=== PATIENT | female | born 1990 | race Caucasian/White ===

== ENCOUNTER 2020-05-08 13:04 | Emergency (ER) | payer OTHER ==
[~2020-05-08] VITALS: Ht 175.3 cm; Wt 181.4 kg
[~2020-05-08 13:04] MED LIST: HYDR1TAB94 PO; IBUP800; IBUP800 PO; INSUASPI; MEDR150I IM; OXYACE5T PO; Omeprazole20 M1; SERT25; SLOW RELEASE47.5 MG; Verotin-Gr Cap1 EACH PO
[2020-05-08 15:09] LABS: BASOPHILS ABSOLUTE AUTO 0.02 K/mm3 (0.00-0.23); BASOPHILS PERCENT AUTO 0 % (0-2); EOSINOPHILS ABSOLUTE AUTO 0.15 K/mm3 (0.00-0.68); EOSINOPHILS PERCENT AUTO 1 % (0-6); Hemoglobin 11.9 g/dL (11.5-16.0); IMMATURE GRAN ABSOLUTE AUTO 0.04 K/mm3 (0.00-0.10); IMMATURE GRAN PERCENT AUTO 0 % (0-1); LYMPHOCYTES ABSOLUTE AUTO 1.17 K/mm3 (0.84-5.20); LYMPHOCYTES PERCENT AUTO 11 % (21-46); MONOCYTES ABSOLUTE AUTO 0.42 K/mm3 (0.16-1.47); MONOCYTES PERCENT AUTO 4 % (4-13); Mean Corpuscular HGB 27.9 pg (26.0-34.0); Mean Corpuscular HGB Conc 30.5 g/dL (31.5-36.5); Mean Corpuscular Volume 92 fL (80-100); Mean Platelet Volume 9.3 fL (9.1-12.4); NEUTROPHILS ABSOLUTE AUTO 8.61 K/mm3 (1.96-9.15); NEUTROPHILS PERCENT AUTO 83 % (41-73); Platelet Count 282 K/mm3 (150-400); RDW Coefficient Variation 13.6 % (11.7-14.2); Red Blood Cell Count 4.26 M/mm3 (3.80-5.20); White Blood Cell Count 10.41 K/mm3 (4.00-11.30)
[2020-05-08 15:34] LABS: Alanine Aminotransfer (ALT/SGP 27 U/L (12-78); Albumin, Blood 3.2 g/dL (3.4-5.0); Albumin/Globulin Ratio 0.7 (0.8-1.8); Alk Phos 99 U/L (50-136); Anion Gap 6 mmol/L (6-16); Aspartate Aminotrans (AST/SGOT 19 U/L (12-37); Bilirubin, Total 0.3 mg/dL (0.1-1.0); Blood Urea Nitrogen 6 mg/dL (8-24); Bun/Creatinine Ratio 8.7 (12.0-20.0); CO2, Blood 29 mmol/L (21-32); Calcium, Blood 8.8 mg/dL (8.5-10.1); Chloride, Blood 102 mmol/L (98-108); Creatinine, Blood 0.69 mg/dL (0.40-1.00); Globulin, Blood 4.5 g/dL (2.2-4.0); Glomerular Filtration Rate >60 (60-); Glucose, Blood 97 mg/dL (70-99); Potassium, Blood 3.7 mmol/L (3.5-5.5); Sodium, Blood 137 mmol/L (136-145); Total Protein, Blood 7.7 g/dL (6.4-8.2)
[2020-05-08 16:03] LABS: Source, Urine Clean Catch
[2020-05-08 16:07] LABS: Bilirubin, Urine Neg (Neg); Blood, Urine Neg (Neg); Glucose Qualitative, Urine Neg (Neg); Ketones, Urine Neg (Neg); Leukocyte Esterase, Urine 2+ (Neg); Nitrite, Urine Neg (Neg); Protein, Urine Neg (Neg); Specific Gravity, Urine 1.005 (1.003-1.022); Urobilinogen, Urine NORM (Normal)
[2020-05-08 16:16] LABS: Appearance, Urine Clear (Clear); Color, Urine Yellow (P-Yellow)
[2020-05-08 16:18] LABS: Bacteria Few /hpf; Red Blood Cells, Urine Not Seen /hpf (0-2); Squamous Epithelial Cells Rare /hpf (Few)
[2020-05-08] MEDS ORDERED: PROZAC20 MG PO (17:19)
[2020-05-08] MEDS ORDERED: Amoxicillin500 MG PO (17:45)
[2020-05-08] MEDS ORDERED: Zithromax250 MG PO (17:45)
== END 2020-05-08 19:08 | disposition home or self-care (01) ==
LOC: ER 13:04
PROVIDERS: Emergency Medicine
DX: O99.511 Diseases of the respiratory system complicating pregnancy, first trimester (principal); J18.9 Pneumonia, unspecified organism; O99.711 Diseases of the skin and subcutaneous tissue complicating pregnancy, first trimester; L55.0 Sunburn of first degree; Z20.828 Contact with and (suspected) exposure to other viral communicable diseases; Z87.891 Personal history of nicotine dependence; Z3A.00 Weeks of gestation of pregnancy not specified
CPT/HCPCS: 36415; 71045; 80053; 81001; 83605; 84145; 84703; 85025; 87040; 87086; 96361; 96365; 96367; 99283-25; J0456; J0696; J7030; J7050; U0002

== ENCOUNTER → 2020-07-22 | Outpatient (CLI) | payer OTHER ==
[~2020-07-22] MED LIST changes: +Amoxicillin500 MG PO; +PROZAC20 MG PO; +Zithromax250 MG PO
== END | disposition home or self-care (01) ==
LOC: LAB SHORT 19:31 → LAB 19:31
DX: R05 Cough (principal); Z20.828 Contact with and (suspected) exposure to other viral communicable diseases
CPT/HCPCS: U0003

== ENCOUNTER 2021-09-13 18:27 | Emergency (ER) | payer SELFPAY ==
[~2021-09-13] VITALS: Ht 172.7 cm; Wt 189.2 kg
[2021-09-13] MEDS ORDERED: LISI20 PO (21:04)
[2021-09-13] MEDS ORDERED: CATAPRES0.1 MG PO (21:04)
[2021-09-13] MEDS ORDERED: VENLAFAXINE ER 150MG (21:05)
[2021-09-13 22:14] LABS: Influenza A, PCR NEGATIVE (NEGATIVE); Influenza B, PCR NEGATIVE (NEGATIVE); SARS-Cov-2 (COVID-19) PCR, MMC NEGATIVE (NEGATIVE)
[2021-09-13 22:15] LABS: Resp Syncytial Virus, PCR POSITIVE (NEGATIVE)
== END 2021-09-13 23:10 | disposition home or self-care (01) ==
LOC: ER 18:27
PROVIDERS: Physician Assistant
DX: J20.5 Acute bronchitis due to respiratory syncytial virus (principal); F17.200 Nicotine dependence, unspecified, uncomplicated; Z79.899 Other long term (current) drug therapy; Z20.822 Contact with and (suspected) exposure to COVID-19
CPT/HCPCS: 0241U; 71046; 99285-25

== ENCOUNTER 2022-01-30 22:56 | Inpatient (IN) | payer OTHER ==
[~2022-01-30] VITALS: Ht 172.7 cm; Wt 183.8 kg
[~2022-01-30 22:56] MED LIST changes: +CATAPRES0.1 MG PO; +LISI20 PO; +VENLAFAXINE ER 150MG
[2022-01-31 00:17] LABS: Influenza A, PCR NEGATIVE (NEGATIVE); Influenza B, PCR NEGATIVE (NEGATIVE); Resp Syncytial Virus, PCR NEGATIVE (NEGATIVE); SARS-Cov-2 (COVID-19) PCR, MMC NEGATIVE (NEGATIVE)
[2022-01-31] MEDS ORDERED: TREMFYA100 MG/1 M SQ (00:46)
[2022-01-31 00:47] LABS: BASOPHILS ABSOLUTE AUTO 0.03 K/mm3 (0.00-0.23); BASOPHILS PERCENT AUTO 0 % (0-2); EOSINOPHILS ABSOLUTE AUTO 0.32 K/mm3 (0.00-0.68); EOSINOPHILS PERCENT AUTO 2 % (0-6); Hematocrit 37.6 % (33.0-51.0); Hemoglobin 11.8 g/dL (11.5-16.0); IMMATURE GRAN PERCENT AUTO 1 % (0-1); LYMPHOCYTES ABSOLUTE AUTO 2.08 K/mm3 (0.84-5.20); LYMPHOCYTES PERCENT AUTO 12 % (21-46); MONOCYTES ABSOLUTE AUTO 0.79 K/mm3 (0.16-1.47); MONOCYTES PERCENT AUTO 5 % (4-13); Mean Corpuscular HGB 28.4 pg (26.0-34.0); Mean Corpuscular HGB Conc 31.4 g/dL (31.5-36.5); Mean Corpuscular Volume 91 fL (80-100); Mean Platelet Volume 9.5 fL (9.1-12.4); NEUTROPHILS ABSOLUTE AUTO 14.36 K/mm3 (1.96-9.15); NEUTROPHILS PERCENT AUTO 81 % (41-73); Platelet Count 338 K/mm3 (150-400); RDW Coefficient Variation 13.8 % (11.7-14.2); RDW Standard Deviation 45.5 fL (35.1-46.3); Red Blood Cell Count 4.15 M/mm3 (3.80-5.20); White Blood Cell Count 17.68 K/mm3 (4.00-11.30)
[2022-01-31 00:56] LABS: Bicarbonate Venous 30.3 mmol/L (24.0-30.0); PCO2 Venous 49.3 mmHg (38-42); pH Blood Venous 7.43 (7.34-7.37)
[2022-01-31 01:05] LABS: Alanine Aminotransfer (ALT/SGP 42 U/L (12-78); Albumin, Blood 3.1 g/dL (3.4-5.0); Albumin/Globulin Ratio 0.6 (0.8-1.8); Alk Phos 117 U/L (50-136); Anion Gap 6 mmol/L (6-16); Aspartate Aminotrans (AST/SGOT 28 U/L (12-37); Bilirubin, Total 0.4 mg/dL (0.1-1.0); Blood Urea Nitrogen 7 mg/dL (8-24); Bun/Creatinine Ratio 9.8 (12.0-20.0); CO2, Blood 30 mmol/L (21-32); Calcium, Blood 9.1 mg/dL (8.5-10.1); Chloride, Blood 102 mmol/L (98-108); Creatinine, Blood 0.71 mg/dL (0.40-1.00); Glomerular Filtration Rate >60 (60-); Glucose, Blood 132 mg/dL (70-99); Potassium, Blood 3.5 mmol/L (3.5-5.5); Sodium, Blood 138 mmol/L (136-145); Total Protein, Blood 8.1 g/dL (6.4-8.2)
[2022-01-31 03:13] LABS: Source, Urine Clean Catch
[2022-01-31 03:16] LABS: Appearance, Urine Clear (Clear); Bilirubin, Urine Neg (Neg); Blood, Urine Neg (Neg); Color, Urine Pale Yellow (P-Yellow); Glucose Qualitative, Urine Neg (Neg); Ketones, Urine Neg (Neg); Leukocyte Esterase, Urine Neg (Neg); Nitrite, Urine Neg (Neg); Protein, Urine 1+ (Neg); Specific Gravity, Urine 1.005 (1.003-1.022); Urobilinogen, Urine NORM (Normal); pH, Urine 6.5 (5.0-8.0)
--- NOTE | 2022-01-31 17:03 | NUR ---
SHIFT SUMMARY PT WITH STRESS INCOTINENCE FROM COUGHING. COUGH MEDS GIVEN TWICE TODAY WITH PT REPORTING MODERATE AMOUNT OF EFFECTIVENESS. VISITO IN THIS AFTERNOON. INDPENDENT TO BATHROOM. HAS SEVERAL SPOTS OF PSORIOSIS SCATTERED TO EXTREMITIES AND TRUNK OF BODY. REPORTS SOB WITH ACTIVITY. O2 ON THIS MORNING BUT HAS BEEN OFF MOST OF AFTERNOON.
--- NOTE | 2022-02-01 07:51 | NUR ---
PM SHIFT SUMMARY PATIENT DID NOT HAVE MANY NEEDS DURING THE SHIFT, OTHER THAN PRN ROBITUSSIN TWICE. SHE WAKES UP TO USE THE RESTROOM A FEW TIMES DURING SHIFT AND HAS A FEW SHORT COUGHING SPELLS, MOST OF WHICH ARE NOT PRODUCTIVE. BREATH SOUNDS ARE COARSE THROUGHOUT. SHE HAS PSORIASIS MARKINGS ALONG HER BODY, ESPECIALLY NOTICEABLE ON ARMS, WHICH SHE SEES OUTPATIENT DERMATOLOGY FOR. SHE USES 2L O2 VIA NC NEEDED FOR COMFORT AND SHORT EPISODES OF SOB. I DID RECEIVE 2 CALLS FROM TELE THAT SHE WAS RUBIN EARLY IN THE MORNING. WHEN I CHECKED ON HER, PATIENT WOKE RIGHT UP STATING SHE FELT FINE AND HAD NO NEEDS.
--- NOTE | 2022-02-01 19:45 | NUR ---
SUMMARY- PT A/O X4, INDEPENDANT UP TO BATHROOM. TAKES OXYGEN ON.OFF. SATS 90-92 ROOM AIR, OXYGEN ON MOST OF THE DAY. OCC STRESS INCONT, CHANGES PULLUPS INDEPENDANTLY. TOLERATING FOOD AND FLUIDS. LUNGS DIM BASES WITH EXP UPPER WHEEZE. ROUTINE NEBS PT STATES HELPFUL TO BREAK UP PHLEGM. ROBITUSSIN PRN TO LOOSTEN SECRETIONS. PLAN FOR LIKELY DC TOMORROW. CPAP ORDERED FOR TONIGHT.
[2022-02-02 04:18] LABS: BASOPHILS ABSOLUTE AUTO 0.04 K/mm3 (0.00-0.23); BASOPHILS PERCENT AUTO 0 % (0-2); EOSINOPHILS ABSOLUTE AUTO 0.41 K/mm3 (0.00-0.68); EOSINOPHILS PERCENT AUTO 3 % (0-6); Hematocrit 35.8 % (33.0-51.0); Hemoglobin 10.6 g/dL (11.5-16.0); IMMATURE GRAN ABSOLUTE AUTO 0.23 K/mm3 (0.00-0.10); IMMATURE GRAN PERCENT AUTO 2 % (0-1); LYMPHOCYTES PERCENT AUTO 17 % (21-46); MONOCYTES ABSOLUTE AUTO 0.65 K/mm3 (0.16-1.47); MONOCYTES PERCENT AUTO 4 % (4-13); Mean Corpuscular HGB 27.7 pg (26.0-34.0); Mean Corpuscular HGB Conc 29.6 g/dL (31.5-36.5); Mean Corpuscular Volume 94 fL (80-100); Mean Platelet Volume 9.4 fL (9.1-12.4); NEUTROPHILS ABSOLUTE AUTO 11.35 K/mm3 (1.96-9.15); NEUTROPHILS PERCENT AUTO 74 % (41-73); NRBC ABSOLUTE 0.05 K/mm3 (0.00-0.02); NRBC Auto 0.3 /100 WBC (0.0-0.2); Platelet Count 311 K/mm3 (150-400); RDW Standard Deviation 47.3 fL (35.1-46.3); Red Blood Cell Count 3.83 M/mm3 (3.80-5.20); White Blood Cell Count 15.28 K/mm3 (4.00-11.30)
[2022-02-02 04:53] LABS: Anion Gap 3 mmol/L (6-16); Blood Urea Nitrogen 8 mg/dL (8-24); Bun/Creatinine Ratio 9.3 (12.0-20.0); CO2, Blood 32 mmol/L (21-32); Calcium, Blood 9.2 mg/dL (8.5-10.1); Chloride, Blood 104 mmol/L (98-108); Creatinine, Blood 0.86 mg/dL (0.40-1.00); Glomerular Filtration Rate >60 (60-); Glucose, Blood 127 mg/dL (70-99); Potassium, Blood 4.3 mmol/L (3.5-5.5); Sodium, Blood 139 mmol/L (136-145)
--- NOTE | 2022-02-02 05:41 | NUR ---
[employer] SUPERVISOR SUMMARY ADMITTED WITH PNA. PT IS FULL CODE. SHE HAS BEEN ON 2L BY NC THROUGHOUT THE NIGHT. PT UNABLE TO WEAR CPAP DUE TO CLAUSTROPHOBIA BUT HAS BEEN SLEEPING ON AND OFF. SHE IS INDEPENDENT TO THE BR. CONTINOUS PULSE OX READING IN THE LOW TO MID 90S. BREATH SOUNDS ARE DISTANT AND QUIET, WITH SLIGHT EXPIRATORY WHEEZE FOLLOWING BREATHING TX. PT HAD A BLOODY NOSE THAT RESOLVED WITH PRESSURE. SHE CONTINUES TO HAVE INTERMITTENT HACKING COUGH AND WAS MEDICATED WITH ONE LOZYNGE AND ONE DOSE OF COUGH SYRUP. PT HAS BEEN NORMAL SINUS ON TELE. SHE EXPRESSED READINESS TO GO HOME.
[2022-02-02] MEDS ORDERED: ALBU2.5V5 (10:43)
[2022-02-02] MEDS ORDERED: ALBU90OI INH (10:45)
[2022-02-02] MEDS ORDERED: TREMFYA100 MG/1 M SQ (11:06)
[2022-02-02] MEDS ORDERED: AZIT500 PO (11:30)
[2022-02-02] MEDS ORDERED: Tessalon200 MG (11:32)
--- NOTE | 2022-02-02 19:41 | NUR ---
1350 PATIENT DC'D WITH DC INSTRUCTIONS. DOES NOT REQUIRE OXYGEN FOR HOME USE, LOWEST SAT WITH ACTIVITY WAS 91%. NEBULIZER MACHINE TO BE DELIVERED TO HOUSE TODAY. RX FAXED TO [facility]. PT FEELS BREATHING IMPROVED AND READY TO GO HOME. HAS BEEN INDEPENDANT IN ROOM AND STEADY ON FEET. HAD A SHOWER THIS AM BEFORE DISCHARGE.
--- NOTE | 2022-02-02 19:44 | NUR ---
PT CALLED 1600 STATING [facility] HAD NOT FILLED PRESCRIPTION., RESENT MED LIST FOR THEM TO FILL. 1630
== END 2022-02-02 14:00 | disposition home or self-care (01) | DRG 871 ==
LOC: ER 22:56 → MEDS 01-31 06:05
PROVIDERS: Internal Medicine; Physician Assistant; ADMIT Family Medicine
DX: A41.9 Sepsis, unspecified organism (principal); J18.9 Pneumonia, unspecified organism; J96.01 Acute respiratory failure with hypoxia; N15.1 Renal and perinephric abscess; Z68.43 Body mass index [BMI] 50.0-59.9, adult; Z20.822 Contact with and (suspected) exposure to COVID-19; G47.33 Obstructive sleep apnea (adult) (pediatric); E66.01 Morbid (severe) obesity due to excess calories; F43.10 Post-traumatic stress disorder, unspecified; F41.9 Anxiety disorder, unspecified; F32.A Depression, unspecified; I10 Essential (primary) hypertension; Z88.8 Allergy status to other drugs, medicaments and biological substances; Z98.890 Other specified postprocedural states; Z90.49 Acquired absence of other specified parts of digestive tract; Z79.899 Other long term (current) drug therapy; D72.828 Other elevated white blood cell count
CPT/HCPCS: 0241U; 36415; 71045; 71260; 80048; 80053; 82803; 83605; 85025; 87040; 93005; 93010; 94640; 94644; 94664; 94760; 94761; 94762; 96374; 99285-25; A9270; J0696; J1650; J7030; Q9967

== ENCOUNTER 2023-11-13 07:10 | Emergency (ER) | payer OTHER ==
[~2023-11-13] VITALS: Ht 172.7 cm; Wt 184.6 kg
[~2023-11-13 07:10] MED LIST changes: +ALBU2.5V5; +ALBU90OI INH; +AZIT500 PO; +DICY20 PO; +Lisinopril2.5 MG PO; +ONDA4ODT MM; +TREMFYA100 MG/1 M SQ; +Tessalon200 MG; +VENL25 PO
[2023-11-13] MEDS ORDERED: BUPR100ER PO (07:55)
[2023-11-13] MEDS ORDERED: NALTREX1.5 MG PO (07:55)
[2023-11-13 08:04] LABS: BASOPHILS ABSOLUTE AUTO 0.02 K/mm3 (0.00-0.23); BASOPHILS PERCENT AUTO 0 % (0-2); EOSINOPHILS PERCENT AUTO 4 % (0-6); Hematocrit 38.1 % (33.0-51.0); Hemoglobin 12.2 g/dL (11.5-16.0); IMMATURE GRAN ABSOLUTE AUTO 0.04 K/mm3 (0.00-0.10); IMMATURE GRAN PERCENT AUTO 1 % (0-1); LYMPHOCYTES ABSOLUTE AUTO 2.17 K/mm3 (0.84-5.20); LYMPHOCYTES PERCENT AUTO 26 % (21-46); MONOCYTES ABSOLUTE AUTO 0.35 K/mm3 (0.16-1.47); MONOCYTES PERCENT AUTO 4 % (4-13); Mean Corpuscular Volume 91 fL (80-100); Mean Platelet Volume 9.4 fL (9.1-12.4); NEUTROPHILS ABSOLUTE AUTO 5.44 K/mm3 (1.96-9.15); NEUTROPHILS PERCENT AUTO 65 % (41-73); Platelet Count 300 K/mm3 (150-400); RDW Coefficient Variation 13.7 % (11.7-14.2); RDW Standard Deviation 45.3 fL (35.1-46.3); White Blood Cell Count 8.32 K/mm3 (4.00-11.30)
[2023-11-13 08:19] LABS: Albumin, Blood 3.2 g/dL (3.4-5.0); Albumin/Globulin Ratio 0.7 (0.8-1.8); Bilirubin, Total 0.3 mg/dL (0.1-1.0); Bun/Creatinine Ratio 15.4 (12.0-20.0); Calcium, Blood 9.1 mg/dL (8.5-10.1); Creatinine, Blood 0.59 mg/dL (0.40-1.00); Globulin, Blood 4.7 g/dL (2.2-4.0); Total Protein, Blood 7.9 g/dL (6.4-8.2)
[2023-11-13 12:00] VITALS: BP 146/95
== END 2023-11-13 11:11 | disposition home or self-care (01) ==
LOC: ER 07:10
PROVIDERS: Student in an Organized Health Care Education/Training Program
DX: K42.0 Umbilical hernia with obstruction, without gangrene (principal); N83.201 Unspecified ovarian cyst, right side; F17.210 Nicotine dependence, cigarettes, uncomplicated; E66.01 Morbid (severe) obesity due to excess calories; Z68.44 Body mass index [BMI] 60.0-69.9, adult; I10 Essential (primary) hypertension; G47.33 Obstructive sleep apnea (adult) (pediatric); Z79.899 Other long term (current) drug therapy; X50.0XXA Overexertion from strenuous movement or load, initial encounter; Y92.009 Unspecified place in unspecified non-institutional (private) residence as the place of occurrence of the external cause
CPT/HCPCS: 74177; 80053; 83690; 85025; 93005; 93010; 96374; 99284-25; J2405; Q9967

== ENCOUNTER → 2024-01-24 | Outpatient (CLI) | payer OTHER ==
[~2024-01-24] MED LIST changes: +BUPR100ER PO; +NALTREX1.5 MG PO
[2024-01-31 19:06] LABS: HPV HIGH RISK BY TMA Not Detected; HPV SOURCE Vaginal
== END | disposition home or self-care (01) ==
LOC: LAB SHORT 09:38 → LAB 09:38
PROVIDERS: Obstetrics & Gynecology
DX: Z01.419 Encounter for gynecological examination (general) (routine) without abnormal findings (principal)
CPT/HCPCS: 87624; G0123